=== PATIENT | male | born 2005 | race Caucasian/White ===

== ENCOUNTER 2024-03-13 21:51 | Emergency (ER) | payer BC, SELFPAY ==
--- NOTE | 2024-03-13 21:54 | ED_ITS ---
Discharge Plan Disposition Chief Complaint: PAIN Referrals Follow up/Referrals: Provider,Nenita, [Primary Care Provider] - See instructions Print Language Print Language: Albanian Discharge ED Provider: Dung Zhao General Adult HPI General Chief complaint: PAIN Stated complaint: lower back pain, hot, urgency to urinate Time Seen by Provider: 03/13/24 21:54 History of Present Illness HPI narrative: Patient presents for evaluation of left flank pain. Patient states he was driving and suddenly had a sharp pain in his left flank. He felt like he had to urinate and stopped his car to do so. He denies any dysuria hematuria abdominal pain chest pain shortness of breath fever chills hemoptysis hematochezia melena nausea vomiting diarrhea or trauma. Related Data Allergies Allergy/AdvReac Type Severity Reaction Status Date / Time No Known Allergies Allergy Unverified 04/24/17 15:[address] [facility] Disclaimer: The information contained in this section may have been updated after the patient was seen, as this information can be updated by other users. Social History (Updated 03/13/24 @ 22:58 by BANDAR Lu) Smoking Status: Current every day smoker alcohol intake: never current occupational status: employed Travel in the last 8 weeks: None ROS Obtained: Yes Systems reviewed as appropriate & no additional complaints except as documented Physical Exam General General appearance: alert and in no apparent distress Respiratory Respiratory exam: Present normal lung sounds bilaterally Cardiovascular Cardiovascular exam: Present regular rate Neurological Exam Neurological exam: Present alert and oriented X3 Medical Decision Making Medical Records Screening: Per USPSTF and CDC recommendations, given the prevalence of disease in our region, it is our hospital?s policy to screen for HIV and viral Hepatitis for all patients aged 18 and over and those with ongoing risk factors. Yung Inquiry Pt receiving controlled substance: No Vital Signs: 03/13/24 22:06 Temperature 98.5 F Temperature Source Oral Pulse Rate [Left Radial] 97 H Respiratory Rate 103 H Blood Pressure [Right Arm] 148/66 H Blood Pressure Mean [Right Arm] 93 Blood Pressure Source [Right Arm] Automatic Cuff Blood Pressure Position [Right Arm] Sitting 02 Sat by Pulse Oximetry 97 Oxygen Delivery Method Room Air Lab Data Lab results reviewed: Yes I reviewed the patient's lab results. Lab Results 03/13/24 22:12: Urine Color Yellow, Urine Appearance Clear, Urine pH 6.0, Ur Specific [place] 1.025, Urine Protein Negative, Urine Glucose (UA) Negative, Urine Ketones Negative, Urine Blood Trace-i, Urine Nitrate Negative, Urine Bilirubin Negative, Urine Urobilinogen 0.2, Ur Leukocyte Esterase Negative, Urine RBC Occasional, Urine WBC 3-5, Ur Squamous Epith Cells Occasional, Urine Bacteria Trace, Urine Mucus 1+ 03/13/24 22:19: WBC 5.9, RBC 4.88, Hgb 15.0, Hct 42.6, MCV 87.4, MCH 30.8, MCHC 35.2, RDW 13.3, Plt Count 211, MPV 9.2, Neut % (Auto) 70.8, Lymph % (Auto) 20.2, [place] % (Auto) 6.8, Eos % (Auto) 0.9, Baso % (Auto) 1.2, Neut # (Auto) 4.2, Lymph # (Auto) 1.2, [place] # (Auto) 0.4, Eos # (Auto) 0.1, Baso # (Auto) 0.1, Sodium 137, Potassium 3.5, Chloride 103, Carbon Dioxide 27, Anion Gap 10.5, BUN 13, C reatinine 0.60 L, Estimated Creat Clear 176, Estimated GFR 172, Est GFR ( Amer) 208, Glucose 156 H, Calcium 9.3, Total Bilirubin 1.0, AST 32, ALT 20, Alkaline Phosphatase 70, Total Protein 7.7, Albumin 4.8 03/13/24 22:19 03/13/24 22:19 Orders (Tests/Meds): ED MEDICATIONS Discontinued Medications Generic Name Dose Route Start Last Admin Trade Name Yaneth PRN Reason Stop Dose Admin Acetaminophen 1,000 mg 03/13/24 21:54 03/13/24 22:22 Acetaminophen 500mg Tab PO 03/13/24 21:55 1,000 mg ONCE ONE Administration Ketorolac Tromethamine 15 mg 03/13/24 21:54 03/13/24 22:22 Ketorolac 30mg/Ml Vial IV 03/13/24 21:55 15 mg ONCE ONE Administration Ondansetron HCl 4 mg 03/13/24 21:54 03/13/24 22:22 Ondansetron 4mg/2ml Vial IV 03/13/24 21:55 4 mg ONCE ONE Administration ORDERS Category Date Time Status CT abdomen pelvis w con Stat Cat Scan 03/13/24 21:55 Ordered CBC w/Auto Diff [Complete Blood Count Auto Diff] Stat Lab 03/13/24 22:19 Completed CMP [Comprehensive Metabolic Panel] Stat Lab 03/13/24 22:19 Results HIV (1&2) Antibody Rapid Stat Lab 03/13/24 22:19 Received Hep C Ab with Reflex to RNA Stat Lab 03/13/24 22:19 Received UA [Urinalysis and Microscopic] Stat Lab 03/13/24 22:12 Completed Medical Decision Narrative: In summary patient is a 19-year-old male who presents to the emergency department for evaluation of left flank pain. Patient is hemodynamically stable upon arrival, febrile. Physical exam is remarkable for mild CVA tenderness to percussion on the left negative on the right with no abdominal tenderness. Bowel sounds normal active.. Differential diagnosis includes also spasm versus kidney stone versus UTI etc. Initial workup will be conducted with hematologic labs urinalysis CT scan abdomen pelvis. Initial interventions include Toradol Tylenol Zofran. Initial workup ordered and pending at the time of handoff to Dr. Hastings at 2300 hrs. Critical Care Critical Care Time Critical Care Time: No
--- NOTE | 2024-03-13 21:55 | CT_ITS ---
PROCEDURE INFORMATION: Exam: CT Abdomen And Pelvis With Contrast Exam date and time: 03/13/2024 11:15 PM Age: 19 years old Clinical indication: Other: Dysuria TECHNIQUE: Imaging protocol: Computed tomography of the abdomen and pelvis with contrast. Radiation optimization: All CT scans at this facility use at least one of these dose optimization techniques: automated exposure control; mA and/or kV adjustment per patient size (includes targeted exams where dose is matched to clinical indication); or iterative reconstruction. Contrast material: ISOVUE; Contrast volume: 75 ml; Contrast route: IV; COMPARISON: No relevant prior studies available. FINDINGS: Liver: Periportal edema. Heterogeneous liver. No mass. Gallbladder and biliary ducts: Normal. No calcified stones. No ductal dilation. Pancreas: Normal. No ductal dilation. Spleen: Unremarkable. Adrenal glands: Normal. No mass. Kidneys and ureters: Normal. No hydronephrosis. Stomach and bowel: Unremarkable. No obstruction. No mucosal thickening. Appendix: No evidence of appendicitis. Intraperitoneal space: Unremarkable. No free air. No significant fluid collection. Vasculature: Retroperitoneal and perisplenic collateral vessels. Lymph nodes: Unremarkable. No enlarged lymph nodes. Urinary bladder: Urinary bladder wall thickening and mild pericystic fat stranding. Reproductive: Unremarkable as visualized. Bones/joints: Unremarkable. No acute fracture. Soft tissues: Unremarkable. IMPRESSION: 1. Suspected low-grade cystitis. 2. Periportal edema with heterogeneous liver. Although nonspecific can be seen with inflammation including hepatitis and hepatic congestion among differential considerations. 3. Nonspecific retroperitoneal and perisplenic collateral vessels although can be seen as sequela of portal hypertension.
[2024-03-13 22:06] VITALS: BP 148/66; PULSE 97; RESP 103; TEMP 36.9; O2SAT 97; BMI 19.0
[2024-03-13 22:16] LABS: Microscopic, Urine URINE MICROSCOPIC (MICROSCOPIC)
[2024-03-13 22:17] LABS: Appearance,Urine CLEAR (Clear); Bilirubin,Urine Negative (Negative); Blood, Urine TRACE-I (Negative); Color,Urine YELLOW (Yellow); Glucose,Urine (UA) Negative (Negative); Ketones,Urine Negative (Negative); Leukocyte Esterase,Urine Negative (Negative); Nitrate,Urine Negative (Negative); Protein,Urine Negative (Negative); Specific Gravity, Urine 1.025 (1.005-1.030); Urobilinogen,Urine 0.2 EU/dl (0.2)
[2024-03-13] MEDS: ACETAMINOPHEN 500MG TAB 1000 MG PO (22:22)
[2024-03-13] MEDS: ONDANSETRON 4MG/2ML VIAL 4 MG IV (22:22)
[2024-03-13] MEDS: KETOROLAC 30MG/ML VIAL 15 MG IV (22:22)
[2024-03-13 22:30] LABS: Bacteria,Urine Trace /lpf; Mucus,Urine 1+ /lpf; RBC,Urine Occasional #/hpf (0-3); Squamous Epithelial Cell,Urine Occasional #/hpf (0-5)
[2024-03-13 22:54] LABS: Albumin Level 4.8 g/dl (3.5-5.0); Chloride 103 mmol/L (98-107)
[2024-03-13 22:55] LABS: Basophils # 0.1 K/mm3 (0-0.2); Basophils % 1.2 % (0.1-2.0); Eosinophils # 0.1 K/mm3 (0.0-0.4); Eosinophils % 0.9 % (0.1-12.0); Hematocrit 42.6 % (42.0-52.0); Lymphocytes # 1.2 K/mm3 (0.7-4.5); Lymphocytes % 20.2 % (10-50); Mean Corpuscular HGB Conc 35.2 g/dL (31.8-35.4); Mean Corpuscular Hemoglobin 30.8 pg (27.0-31.2); Mean Corpuscular Volume 87.4 fl (80-94); Mean Platelet Volume 9.2 fl (7.4-10.4); Monocytes # 0.4 K/mm3 (0.1-1.0); Monocytes % 6.8 % (1.7-9.3); Neutrophils # 4.2 K/mm3 (1.8-7.8); Neutrophils % 70.8 % (37.0-80.0); Platelet Count 211 K/mm3 (142-424); Potassium 3.5 mmoL/L (3.5-5.1); Red Blood Count 4.88 M/mm3 (4.60-6.20); Red Cell Distribution Width 13.3 % (11.5-17.5); Sodium 137 mmol/L (136-145); White Blood Count 5.9 K/mm3 (4.5-13.0)
[2024-03-13 22:57] LABS: Alanine Aminotransferase 20 U/L (12-78); Anion Gap 10.5 mEq/L (5-15); Aspartate Amino Transferase 32 U/L (17-59); Blood Urea Nitrogen 13 mg/dl (9-20); Carbon Dioxide 27 mmol/L (22.0-30.0); Creatinine Clearance Estimated 176 mL/min (50-200); Estimated Glomerular Filt Rate 172 ml/min (>60); GFR (African American) 208 ML/MIN (>60)
[2024-03-13 22:58] LABS: Alkaline Phosphatase 70 U/L (38-126); Calcium 9.3 mg/dl (8.4-10.2); Glucose 156 mg/dl (74-100); Total Protein,Serum 7.7 g/dl (6.3-8.2)
[2024-03-13 23:18] LABS: Albumin/Globulin Ratio 1.7 (1.1-1.8); Globulin 2.9 g/dL (1.3-3.2)
[2024-03-13] MEDS: IOPAMIDOL-370 (76%);100ML BOTTLE 75 ML IV (23:20)
[2024-03-13] MEDS: SODIUM CHLORIDE 0.9% 10ML SYR (RAD ONLY) 10 ML IV (23:20)
[2024-03-13 23:42] LABS: HIV (1&2) Antibody Rapid NONREACTIVE (NONREACTIVE)
[2024-03-14 00:09] VITALS: BP 95/68; PULSE 77; RESP 20; TEMP 36.9; O2SAT 96
[2024-03-15 08:22] LABS: HCV Ab Non Reactive (Non Reactive)
[2024-03-17 19:09] LABS: Neisseria gonorrhoeae, NAA Negative (Negative)
== END 2024-03-14 00:16 | disposition home or self-care (01) ==
PROVIDERS: Physician Assistant; Emergency Provider Emergency Medicine
DX: R10.9 Unspecified abdominal pain (principal)
CPT/HCPCS: 74177; 80053; 81001; 85025; 86803; 87086; 87389; 87491; 87591; 96374; 96375; 99284; J1885; J2405; Q9967